=== PATIENT | female | born 1990 | race Caucasian/White ===

== ENCOUNTER 2017-12-03 09:58 | Day surgery (SDC) | payer OTHER ==
[~2017-12-03] VITALS: Ht 154.9 cm; Wt 56.8 kg
[~2017-12-03 09:58] MED LIST: MIDOL COMPLETE1 EACH PO; TYLENOL EXTRA500 MG PO
[2017-12-03 10:26] VITALS: BP 118/72
[2017-12-03] MEDS ORDERED: IBUPROFEN800 MG PO (12:02)
[2017-12-03] MEDS ORDERED: ENDOCET 5-3251 EACH PO (12:02)
[2017-12-03 12:40] VITALS: BP 97/53
[2017-12-03 13:51] VITALS: BP 104/59
[2017-12-03 15:22] VITALS: BP 100/58
== END 2017-12-03 15:20 | disposition home or self-care (01) ==
LOC: SDC 09:58
DX: N83.8 Other noninflammatory disorders of ovary, fallopian tube and broad ligament (principal); N94.6 Dysmenorrhea, unspecified; R00.2 Palpitations; N80.3 Endometriosis of pelvic peritoneum; Z88.2 Allergy status to sulfonamides
CPT/HCPCS: 88304; 93005; J0330; J1885; J2250; J2405; J2710; J3010; S0020